=== PATIENT | male | born 1955 | race Caucasian/White ===

== ENCOUNTER 2023-03-26 09:57 | Emergency (ER) | payer MEDICARE, MEDICAID, SELFPAY ==
[2023-03-26 10:08] VITALS: BP 133/84; PULSE 89; RESP 20; TEMP 36.6; O2SAT 100
--- NOTE | 2023-03-26 10:40 | ED.GENADULT ---
HPI - General Adult General Chief complaint: Wound/Laceration Stated complaint: injuries from fall Source: patient and RN notes reviewed History of Present Illness HPI narrative: 68 yo M Presents to urgent care with complaints of a fall 5 days ago. Pt states he was taking his trash out last sunday and had trashbags in both hands. Pt states he stepped on a bad and ended up tripping, falling to the concrete. Pt states he fell onto his left elbow and face planted. Denies any LOC. States he was helped up by 2 by-standers. Presents with abrasions to forehead, left elbow area, bridge of nose and left upper shoulder. Denies any neck pain, BARRERA, visual disturbance, dizziness, vomiting, blurry vision, numbness, tingling, chest pain, or shortness of breath. Patient does admit to being on anticoagulants and states he was drinking a couple beers tonight. Patient has been putting Neosporin on his abrasions. Related Data Home Medications Medication Instructions Recorded Confirmed amiodarone 200 mg tablet mg 03/26/23 atorvastatin 10 mg tablet mg 03/26/23 carvedilol 12.5 mg tablet mg 03/26/23 docusate sodium 100 mg capsule mg PO 03/26/23 fluticasone 500 mcg-salmeterol 50 inhalation 03/26/23 mcg/dose blistr powdr for inhalation (Wixela Inhub) furosemide 40 mg tablet mg 03/26/23 levothyroxine 50 mcg tablet mcg 03/26/23 montelukast 10 mg tablet mg 03/26/23 rivaroxaban 15 mg tablet (Xarelto) mg 03/26/23 spironolactone 25 mg tablet mg 03/26/23 thiamine HCl (vitamin B1) 100 mg mg 03/26/23 tablet (Vitamin B-1) triamcinolone acetonide 0.1 % applic topical 03/26/23 topical cream Allergies Allergy/AdvReac Type Severity Reaction Status Date / Time No Known Allergies Allergy Verified 03/26/23 10:02 Review of Systems Review of Systems: Pertinent positives and pertinent negatives per HPI. PMFSH Comments At the time of my signature, I reviewed and agree with the nursing past medical, surgical, social, and family history. There is no relevant family history pertinent to the patient complaint. Exam Narrative: GENERAL: This is a well-nourished, well-developed patient, in no apparent distress. HEAD: normocephalic, atraumatic. EYES: Sclera clear/white. Vision is grossly intact. Bilateral ecchymosis to bilateral lower orbital regions. PERRLA. EARS: External ears normal, auditory canals clear and without drainage, TMs normal without perforation. Hearing grossly intact. NOSE: External nose normal with no obvious nasal discharge, nares without redness, no rhinorrhea. bridge of nose has scabbed abrasion. nose noted to be deviated and pt states that is normal for him from a childhood injury. THROAT: Mucous membranes moist, posterior pharynx clear. NECK: Neck supple, non-tender without lymphadenopathy, masses or thyromegaly. CARDIOVASCULAR: Regular rate and rhythm without murmurs, gallops, or rubs. RESPIRATORY: Clear to auscultation. Breath sounds equal bilaterally. No wheezes, rales, or rhonchi. GASTROINTESTINAL: Abdomen soft, non-tender, nondistended. Bowel sounds are active. No hepato-splenomegaly, or palpable masses. No guarding. SKIN: 5-6 cm abrasion with white/yellow drainage to left lateral elbow area with surrounding erythema, extending about 2 cm in radius. small abrasion to left latera shoulder, approximately 2 cm in diameter. Scabbed abrasion to mid forehead, approximately 3 cm in diameter. Multiple scabs noted to bilateral arms which pt states is from hitting his arms on the screen door often. NEURO: awake, alert, and oriented to person, place and time. There were no obvious focal neurologic abnormalities. EXTREMITIES: No clubbing, cyanosis, or edema. No joint tenderness, effusion, or edema noted. BACK: Nontender without deformity or crepitus. No flank tenderness. Course Course Level of Care: Express Care Visit Vital Signs Vital signs: Vital Signs Temperature 97.8 F 03/26/23 10:08 Pulse Rate 89
== END 2023-03-26 11:12 | disposition home or self-care (01) ==
PROVIDERS: Emergency Provider Nurse Practitioner Family; PCP Family Medicine
DX: S40.212A Abrasion of left shoulder, initial encounter (principal); S50.312A Abrasion of left elbow, initial encounter; L03.114 Cellulitis of left upper limb; S09.90XA Unspecified injury of head, initial encounter; S05.12XA Contusion of eyeball and orbital tissues, left eye, initial encounter; S05.11XA Contusion of eyeball and orbital tissues, right eye, initial encounter; W01.0XXA Fall on same level from slipping, tripping and stumbling without subsequent striking against object, initial encounter; Z79.01 Long term (current) use of anticoagulants
CPT/HCPCS: 99213; G0463

== ENCOUNTER 2024-03-05 11:24 | Emergency (ER) | payer MEDICARE, MEDICAID, SELFPAY ==
[2024-03-05 11:32] VITALS: BP 130/73; PULSE 71; RESP 18; TEMP 36.3; O2SAT 100
--- NOTE | 2024-03-05 11:38 | ED.SKABFB ---
HPI - Skin/Abscess/Foreign Bdy General Chief complaint: Skin/Abscess/Foreign Body Stated complaint: Skin Sore Time Seen by Provider: 03/05/24 11:38 Source: patient Mode of arrival: ambulatory Limitations: no limitations History of Present Illness HPI narrative: 69 yo M presents with c/o irritation, itcing to tailbone for approx. 1 month. Thinks pants are rubbing on tailbone area and causing irritation. Has been applying neosporin every day with no relief of symptoms. All systems reviewed and negative except as noted above. Related Data Home Medications Medication Instructions Recorded Confirmed amiodarone 200 mg tablet 200 mg PO DAILY 03/26/23 03/05/24 atorvastatin 10 mg tablet 10 mg PO DAILY 03/26/23 03/05/24 carvedilol 12.5 mg tablet 12.5 mg PO DAILY 03/26/23 03/05/24 docusate sodium 100 mg capsule 100 mg PO DAILY PRN Constipation 03/26/23 03/05/24 furosemide 40 mg tablet 40 mg PO DAILY 03/26/23 03/05/24 levothyroxine 50 mcg tablet 50 mcg PO DAILY 03/26/23 03/05/24 montelukast 10 mg tablet 10 mg PO DAILY 03/26/23 03/05/24 rivaroxaban 15 mg tablet (Xarelto) 15 mg PO DAILY 03/26/23 03/05/24 spironolactone 25 mg tablet 25 mg PO DAILY 03/26/23 03/05/24 thiamine HCl (vitamin B1) 100 mg 100 mg PO DAILY 03/26/23 03/05/24 tablet (Vitamin B-1) midodrine 5 mg tablet 5 mg PO TID 03/05/24 03/05/24 Allergies Allergy/AdvReac Type Severity Reaction Status Date / Time No Known Allergies Allergy Verified 03/05/24 11:38 Review of Systems Review of Systems: CONSTITUTIONAL: Denies fever, chills, or sweats. EYES: Denies visual changes, redness, or discharge. ENT: Denies rhinorrhea, congestion, sore throat, or otalgia. CARDIOVASCULAR: Denies chest pain, palpitations, or edema. RESPIRATORY: Denies cough or dyspnea. GASTROINTESTINAL: Denies abdominal pain, nausea, vomiting, or diarrhea. GENITOURINARY: Denies dysuria or hematuria. SKIN: Reports irritation, itching to tailbone. MUSCULOSKELETAL: Denies back pain, joint pain, or myalgia. NEUROLOGIC: Denies headache, numbness, or weakness. PSYCHIATRIC: Denies anxiety or depression. All other systems reviewed are negative, except as documented in HPI. PMFSH Comments At time of signature, agree with nursing past medical, surgical, social and family history. There is no relevant family history pertinent to the presenting complaint. Exam Narrative: GENERAL: This is a well-nourished, well-developed patient, in no apparent distress. HEAD: normocephalic, atraumatic. EYES: PERRL. Sclera clear/white. Vision is grossly intact. EARS: External ears normal NOSE: External nose normal NECK: Neck supple, non-tender without lymphadenopathy, masses or thyromegaly. CARDIOVASCULAR: Regular rate and rhythm without murmurs, gallops, or rubs. RESPIRATORY: Clear to auscultation. Breath sounds equal bilaterally. No wheezes, rales, or rhonchi. SKIN: warm, Dry, intact with no suspicious lesions or rash, good texture and turgor. erythema, dry flaky skin to buttock/tailbone area. no signs of infection. NEURO: awake, alert, and oriented to person, place and time. There were no obvious focal neurologic abnormalities. EXTREMITIES: No joint tenderness, effusion, or edema noted. Skin: Full body images: 1. erythema and dry, flaky skin Course Course Level of Care: Express Care Visit Vital Signs Vital signs: Vital Signs Temperature 36.3 C L 03/05/24 11:32 Pulse Rate 71 03/05/24 11:32 Respiratory Rate 18 03/05/24 11:32 Blood Pressure 130/73 03/05/24 11:32 Pulse Oximetry 100 03/05/24 11:32 Oxygen Delivery Room Air 03/05/24 11:32 Temperature 36.3 C L 03/05/24 11:32 Pulse Rate 71 03/05/24 11:32 Respiratory Rate 18 03/05/24 11:32 Blood Pressure 130/73 03/05/24 11:32 Pulse Oximetry 100 03/05/24 11:32 Oxygen Delivery Room Air 03/05/24 11:32 reviewed MDM - Skin/Abscess/Foreign Bdy MDM Narrative Medical decision making narrative: Patient is aware
== END 2024-03-05 11:48 | disposition home or self-care (01) ==
PROVIDERS: Emergency Provider Nurse Practitioner Family; PCP Family Medicine
DX: L30.9 Dermatitis, unspecified (principal); E78.00 Pure hypercholesterolemia, unspecified; I10 Essential (primary) hypertension; J45.909 Unspecified asthma, uncomplicated; E03.9 Hypothyroidism, unspecified
CPT/HCPCS: 99213; G0463